=== PATIENT | female | born 1975 | race Caucasian/White ===

== ENCOUNTER 2023-11-15 11:38 | Emergency (ER) | payer SELFPAY ==
[2023-11-15 12:10] VITALS: BP 154/95; PULSE 69; RESP 18; TEMP 98.4; BMI 30.5
[2023-11-15] MEDS ORDERED: CYCLOBENZAPRINE HCL 5 MG TABLET ONE (14:00)
[2023-11-15] MEDS: CYCLOBENZAPRINE HCL 10 MG TABLET (FP) PO ONE (14:02)
== END 2023-11-15 14:40 | disposition home or self-care (01) ==
LOC: FER 11:38
DX: M54.2 Cervicalgia (principal); M79.601 Pain in right arm; M54.12 Radiculopathy, cervical region
CPT/HCPCS: 72040-TC; 73030-TC-RT-FY; 99284-25